=== PATIENT | female | born 1985 | race Caucasian/White ===

== ENCOUNTER 2017-01-31 10:24 | Emergency (ER) | payer BC, OTHER ==
--- NOTE | 2017-01-31 10:30 | EDM.PDOC ---
ED HPI GENERAL MEDICAL PROBLEM - General Chief Complaint: Lower Extremity Injury/Pain Stated Complaint: LEFT FOOT PAIN Time Seen by Provider: 01/31/17 10:25 - History of Present Illness INITIAL COMMENTS - FREE TEXT/NARRATIVE: HISTORY AND PHYSICAL: History of present illness: Patient 31-year-old female presents status post left foot injury that occurred yesterday when she was tripped by her dog injuring her left foot in the fall she denies other trauma or concern Review of systems: As per history of present illness and below otherwise all systems reviewed and negative. Past medical history: As per history of present illness and as reviewed below otherwise noncontributory. Surgical history: As per history of present illness and as reviewed below otherwise noncontributory. Social history: No reported history of drug or alcohol abuse. Family history: As per history of present illness and as reviewed below otherwise noncontributory. Physical exam: HEENT: Atraumatic, normocephalic, pupils reactive, negative for conjunctival pallor or scleral icterus, mucous membranes moist, throat clear, neck supple, nontender, trachea midline. Lungs: Clear to auscultation, breath sounds equal bilaterally, chest nontender. Heart: S1S2, regular, negative for clicks, rubs, or JVD. Abdomen: Soft, nondistended, nontender. Negative for masses or hepatosplenomegaly. Negative for costovertebral tenderness. Pelvis: Stable nontender. Genitourinary: Deferred. Rectal: Deferred. Extremities: Patient is a tenderness to palpation of the left forefoot and has had tenderness and ecchymosis noted to be dorsal aspect of the first digit of the left foot Neuro: Awake, alert, oriented. Cranial nerves II through XII unremarkable. Cerebellum unremarkable. Motor and sensory unremarkable throughout. Exam nonfocal. Diagnostics: X-ray left foot Therapeutics: To be determined Impression: #1 acute left foot injury Definitive disposition and diagnosis as appropriate pending reevaluation and review of above. - Related Data Allergies Allergy/AdvReac Type Severity Reaction Status Date / Time No Known Allergies Allergy Verified 01/31/17 10:28 Home Meds: Home Meds . [No Known Home Meds] 05/25/16 [History] Past Medical History - Past Health History Medical/Surgical History: Denies Medical/Surgical History HEENT History: Reports: None Genitourinary History: Reports: None Endocrine/Metabolic History: Reports: Obesity/BMI 30+ - Infectious Disease History Infectious Disease History: Reports: Chicken Pox Other Infectious Disease History: childhood - Past Surgical History HEENT Surgical History: Reports: Oral Surgery Female Surgical History: Reports: Tubal Ligation Social & Family History - Family History Family Medical History: Noncontributory Cardiac: Reports: [place] Neurological: Reports: CVA Endocrine/Metabolic: Reports: Diabetes, Type I Oncologic: Reports: Breast - Tobacco Use Smoking Status *Q: Current Every Day Smoker Years of Tobacco use: 15 Packs/Tins Daily: 0.5 - Caffeine Use Caffeine Use: Reports: Coffee - Recreational Drug Use Recreational Drug Use: No Drug Use in Last 12 Months: No Review of Systems - Review of Systems Review Of Systems: ROS reveals no pertinent complaints other than HPI. Trauma Exam - Physical Exam Exam: See Below (see dictation) Course - Vital Signs Last Recorded V/S: Last Vital Signs Temp 36.3 C 01/31/17 10:28 Pulse 93 01/31/17 10:28 Resp 18 01/31/17 10:28 BP 135/75 01/31/17 10:28 Pulse Ox 99 01/31/17 10:28 - Orders/Labs/Meds Orders: Active Orders 24 hr Category Date Time Status Foot Comp Min 3V Lt [CR] Stat Exams 01/31/17 10:29 Taken Departure - Departure Time of Disposition: 11:15 Disposition: Home, Self-Care 01 Condition: good Clinical Impression: Foot injury - Discharge Information Forms: ED Department Discharge Additional Instructions: The following information is given to patients seen in the emergency department who are being discharged to home. This information is to outline your options for follow-up care. We provide all patients seen in our emergency department with a follow-up referral. The need for follow-up, as well as the timing and circumstances, are variable depending upon the specifics of your emergency department visit. If you don't have a primary care physician on staff, we will provide you with a referral. We always advise you to contact your personal physician following an emergency department visit to inform them of the circumstance of the visit and for follow-up with them and/or the need for any referrals to a consulting specialist. The emergency department will also refer you to a specialist when appropriate. This referral assures that you have the opportunity for followup care with a specialist. All of these measure are taken in an effort to provide you with optimal care, which includes your followup. Under all circumstances we always encourage you to contact your private physician who remains a resource for coordinating your care. When calling for followup care, please make the office aware that this follow-up is from your recent emergency room visit. If for any reason you are refused follow-up, please contact the [facility] emergency department at and asked to speak to the emergency department charge nurse. Chad wrap crutches as directed follow up primary medical doctor one to 2 days Motrin/Tylenol as directed return as needed as discussed - My Orders Last 24 Hours: My Active Orders 01/31/17 10:29 Foot Comp Min 3V Lt [CR] Stat - Assessment/Plan Last 24 Hours: My Active Orders 01/31/17 10:29 Foot Comp Min 3V Lt [CR] Stat
[2017-01-31 11:28] VITALS: BP 121/70
--- NOTE | 2017-02-01 14:00 | CR ---
EXAM DATE: 01/31/17 PATIENT'S AGE: 31 Patient: LULU SINGLETON Facility: [place], [place] Site Site : [id number] Study: XRay Extremity Left FOOT [id number]/29/2017 10:45:12 AM Ordering Physician: ILSA AUGUSTINE MD. Final Report: HISTORY: Pain after injury. Findings: Three views of the left foot are provided. There is a 2 part appearance to the lateral or fibular sesamoid at the base of the distal 1st metatarsal. This can represent normal variation. If there is point tenderness in this region this could represent an acute type or stress type fracture. There also could be sesamoiditis within a bipartite sesamoid causing pain in this region. Otherwise there is no evidence for fracture, dislocation or arthritic change elsewhere. Dictated by Kiko Davis MD @ Jan 31 2017 10:54AM (Electronic Signature) Report Signed by Proxy. RAH
== END 2017-01-31 11:27 | disposition home or self-care (01) ==
LOC: MW.ED 10:24
DX: S99.922A Unspecified injury of left foot, initial encounter (principal); F17.210 Nicotine dependence, cigarettes, uncomplicated; E66.9 Obesity, unspecified; Z68.33 Body mass index [BMI] 33.0-33.9, adult; Z98.51 Tubal ligation status; Z98.890 Other specified postprocedural states; W01.0XXA Fall on same level from slipping, tripping and stumbling without subsequent striking against object, initial encounter
CPT/HCPCS: 73630-26-LT; 73630-LT; 99282; 99283

== ENCOUNTER 2019-08-17 18:38 | Emergency (ER) | payer OTHER ==
--- NOTE | 2019-08-17 19:02 | EDM.PDOC ---
ED HPI GENERAL MEDICAL PROBLEM - General Chief Complaint: Head Injury Stated Complaint: HEAD INJURY Time Seen by Provider: 08/17/19 18:44 Source of Information: Reports: Patient History Limitations: Reports: No Limitations - History of Present Illness INITIAL COMMENTS - FREE TEXT/NARRATIVE: HISTORY AND PHYSICAL: History of present illness: Patient is a 34-year-old female presents to the ED today with concern of head injury that occurred yesterday. Patient states she was standing on a deck when she slipped and hit the back of her head. Patient states she did not lose consciousness during this event. Patient states today that she has had some pain at the back of her head and neck pain. Patient states she does have a history of tubal ligation. Patient denies any vomiting or any other symptoms. Patient denies fever, chills, chest pain, shortness of breath, or cough. Denies headache, neck stiff ness, change in vision, syncope, or near syncope. Denies nausea, vomiting, abdominal pain, diarrhea, constipation, or dysuria. Has not noted any blood in urine or stool. Patient has been eating and drinking appropriately. Review of systems: As per history of present illness and below otherwise all systems reviewed and negative. Past medical history: As per history of present illness and as reviewed below otherwise noncontributory. Surgical history: As per history of present illness and as reviewed below otherwise noncontributory. Social history: See social history for further information Family history: As per history of present illness and as reviewed below otherwise noncontributory. Physical exam: General: Patient is alert, oriented, and in no acute distress. Patient sitting comfortably on exam table. HEENT: Atraumatic, normocephalic, pupils equal and reactive bilaterally, negative for conjunctival pallor or scleral icterus, mucous membranes moist, TMs normal bilaterally, throat clear, neck supple, nontender, trachea midline. No drooling or trismus noted. No meningeal signs. No hot potato voice noted. Lungs: Clear to auscultation, breath sounds equal bilaterally, chest nontender. Heart: S1S2, regular rate and rhythm without overt murmur Abdomen: Soft, nondistended, nontender. Negative for masses or hepatosplenomegaly. Negative for costovertebral tenderness. Pelvis: Stable nontender. Genitourinary: Deferred. Rectal: Deferred. Skin: Intact, warm, dry. No lesions or rashes noted. Extremities: Atraumatic, negative for cords or calf pain. Neurovascular unremarkable. Neuro: Awake, alert, oriented. Cranial nerves II through XII unremarkable. Cerebellum unremarkable. Motor and sensory unremarkable throughout. Exam nonfocal. Notes: Discussed the importance for follow-up with a primary care provider. Voices understanding and is agreeable to plan of care. Denies any further questions or concerns at this time. Diagnostics: Head CT, Cervical spine Ct Therapeutics: None Prescription: None Impression: Head injury Neck pain Plan: 1. Rest, ice, elevate the affected area. You can apply ice and or heat 15 minutes on, 15 minutes off. 2. Tylenol and/or Ibuprofen as directed for pain management or discomfort. 3. Follow up with the primary care provider as discussed. Return to the ED as needed and as discussed. Definitive disposition and diagnosis as appropriate pending reevaluation and review of above. Head/Neck Pain Score (Numeric/FACES): 4 - Related Data Allergies Allergy/AdvReac Type Severity Reaction Status Date / Time No Known Allergies Allergy Verified 08/17/19 18:50 Home Meds: Home Meds . [No Known Home Meds] 05/25/16 [History] Past Medical History - Past Health History Medical/Surgical History: Denies Medical/Surgical History HEENT History: Reports: None Gastrointestinal History: Reports: None Genitourinary History: Reports: None Endocrine/Metabolic History: Reports: Obesity/BMI 30+ - Infectious Disease History Infectious Disease History: Reports: Chicken Pox Other Infectious Disease History: childhood - Past Surgical History Head Surgeries/Procedures: Reports: None HEENT Surgical History: Reports: Oral Surgery GI Surgical History: Reports: Cholecystectomy Female Surgical History: Reports: Tubal Ligation Social & Family History - Family History Family Medical History: Noncontributory Cardiac: Reports: [place] Neurological: Reports: CVA Endocrine/Metabolic: Reports: Diabetes, Type I Oncologic: Reports: Breast - Caffeine Use Caffeine Use: Reports: Coffee ED ROS GENERAL - Review of Systems Review Of Systems: Comprehensive ROS is negative, except as noted in HPI. ED EXAM, HEAD INJURY - Physical Exam Exam: See Below (see dictation) Course - Vital Signs Last Recorded V/S: Last Vital Signs Temp 96.4 F 08/17/19 18:47 Pulse 66 08/17/19 20:03 Resp 16 08/17/19 20:03 BP 116/75 08/17/19 20:03 Pulse Ox 98 08/17/19 20:03 Departure - Departure Time of Disposition: 20:09 Disposition: Home, Self-Care 01 Clinical Impression: Neck pain Head injury Qualifiers: Encounter type: initial encounter Qualified Code(s): S09.90XA - Unspecified injury of head, initial encounter - Discharge Information Referrals: Trena Abdi [Primary Care Provider] - Forms: ED Department Discharge Additional Instructions: The following information is given to patients seen in the emergency department who are being discharged to home. This information is to outline your options for follow-up care. We provide all patients seen in our emergency department with a follow-up referral. The need for follow-up, as well as the timing and circumstances, are variable depending upon the specifics of your emergency department visit. If you don't have a primary care physician on staff, we will provide you with a referral. We always advise you to contact your personal physician following an emergency department visit to inform them of the circumstance of the visit and for follow-up with them and/or the need for any referrals to a consulting specialist. The emergency department will also refer you to a specialist when appropriate. This referral assures that you have the opportunity for follow-up care with a specialist. All of these measure are taken in an effort to provide you with optimal care, which includes your follow-up. Under all circumstances we always encourage you to contact your private physician who remains a resource for coordinating your care. When calling for follow-up care, please make the office aware that this follow-up is from your recent emergency room visit. If for any reason you are refused follow-up, please contact the [facility] Emergency Department at and asked to speak to the emergency department charge nurse. [facility] [address] [place] [id number] [facility] [address] [place] [id number] 1. Rest, ice, elevate the affected area. You can apply ice and or heat 15 minutes on, 15 minutes off. 2. Tylenol and/or Ibuprofen as directed for pain management or discomfort. 3. Follow up with the primary care provider as discussed. Return to the ED as needed and as discussed. Sepsis Event Note - Evaluation Sepsis Screening Result: No Definite Risk - Focused Exam Vital Signs: Vital Signs Temp Pulse Resp BP Pulse Ox 08/17/19 20:03 66 16 116/75 98 08/17/19 18:47 96.4 F 77 16 149/91 H 98 Date Exam was Performed: 08/17/19 Time Exam was Performed: 20:09
--- NOTE | 2019-08-17 20:00 | CT ---
INDICATION: Pain following fall 1 day prior TECHNIQUE: CT head without contrast. COMPARISON: None FINDINGS: CSF spaces: Within normal limits for age. Brain parenchyma: The gómez-white differentiation is normal. No sign of mass, hemorrhage, or midline shift. Skull base and calvarium: The visualized paranasal sinuses and mastoid air cells demonstrate no acute or significant findings. The visualized orbits are grossly unremarkable. No skull fractures. IMPRESSION: Unremarkable noncontrast head CT. Dictated by Clyde Simon MD @ 08/17/2019 7:58:07 PM Please note that all CT scans at this facility use dose modulation, iterative reconstruction, and/or weight-based dosing when appropriate to reduce radiation dose to as low as reasonably achievable. Dictated by: Clyde Simon MD @ 08/17/2019 19:58:18 (Electronically Signed)
[2019-08-17 20:04] VITALS: BP 116/75; PULSE 66
--- NOTE | 2019-08-17 20:07 | CT ---
INDICATION: Pain following fall TECHNIQUE: CT cervical spine without contrast. COMPARISON: None FINDINGS: Vertebral alignment: Alignment is normal. Vertebrae: There are no fractures or suspicious bony lesions. Discs and facet joints: Disc spaces and facets are within normal limits. Extraspinal findings: Prevertebral soft tissues, visualized airway, and visualized lungs are unremarkable. IMPRESSION: Unremarkable cervical spine CT. Dictated by Clyde Simon MD @ 08/17/2019 8:05:43 PM Please note that all CT scans at this facility use dose modulation, iterative reconstruction, and/or weight-based dosing when appropriate to reduce radiation dose to as low as reasonably achievable. Dictated by: Clyde Simon MD @ 08/17/2019 20:05:57 (Electronically Signed)
== END 2019-08-17 20:59 | disposition home or self-care (01) ==
LOC: MW.ED 18:38
DX: S09.90XA Unspecified injury of head, initial encounter (principal); M54.2 Cervicalgia; E66.9 Obesity, unspecified; Z68.31 Body mass index [BMI] 31.0-31.9, adult; W01.10XA Fall on same level from slipping, tripping and stumbling with subsequent striking against unspecified object, initial encounter
CPT/HCPCS: 70450; 70450-26; 72125; 72125-26; 99283-25

== ENCOUNTER 2020-04-10 22:22 | Emergency (ER) | payer OTHER ==
--- NOTE | 2020-04-10 23:19 | EDM.PDOC ---
ED HPI GENERAL MEDICAL PROBLEM - General Chief Complaint: Abdominal Pain Stated Complaint: RIGHT SIDE PAIN Time Seen by Provider: 04/10/20 23:15 Source of Information: Reports: Patient History Limitations: Reports: No Limitations - History of Present Illness INITIAL COMMENTS - FREE TEXT/NARRATIVE: 34F presents for RLQ abdominal pain x4 days. Notes h/o abdominoplasty a couple of months ago in [facility]. Hasn't noted fever, redness, swelling, discharge, N/V. Does note constipation. Feels "tight" and worse with movement. Right Lower Abdomen Pain Score (Numeric/FACES): 6 - Related Data Allergies Allergy/AdvReac Type Severity Reaction Status Date / Time No Known Allergies Allergy Verified 04/10/20 23:01 Home Meds: Home Meds Amoxicillin/Clavulanate K [Augmentin 875-125 MG] 1 tab PO BID 10 Days #20 tablet 04/11/20 [Rx] Past Medical History - Past Health History Medical/Surgical History: Denies Medical/Surgical History HEENT History: Reports: None Gastrointestinal History: Reports: None Genitourinary History: Reports: None Psychiatric History: Reports: None Endocrine/Metabolic History: Reports: Obesity/BMI 30+ - Infectious Disease History Infectious Disease History: Reports: Chicken Pox Other Infectious Disease History: childhood - Past Surgical History Head Surgeries/Procedures: Reports: None HEENT Surgical History: Reports: Oral Surgery GI Surgical History: Reports: Cholecystectomy Female Surgical History: Reports: Tubal Ligation Dermatological Surgical History: Reports: Plastic Surgical Reconstruction/Repair Social & Family History - Family History Family Medical History: Noncontributory Cardiac: Reports: ND Neurological: Reports: CVA Endocrine/Metabolic: Reports: Diabetes, Type I Oncologic: Reports: Breast - Tobacco Use Smoking Status *Q: Current Some Day Smoker Years of Tobacco use: 17 Packs/Tins Daily: 0.4 - Caffeine Use Caffeine Use: Reports: Coffee - Recreational Drug Use Recreational Drug Use: No ED ROS GENERAL - Review of Systems Review Of Systems: Comprehensive ROS is negative, except as noted in HPI. ED EXAM, GI/ABD - Physical Exam Exam: See Below Exam Limited By: No Limitations General Appearance: Alert, WD/WN, No Apparent Distress Head: Atraumatic Respiratory/Chest: No Respiratory Distress, Lungs Clear, Normal Breath Sounds, No Accessory Muscle Use Cardiovascular: Normal Peripheral Pulses, Regular Rate, Rhythm, No Edema, Tachycardia GI/Abdominal Exam: Soft, Non-Tender, Other (well appearing transverse abdominal surgical incision site without erythema; mild TTP of RLQ without guarding or ebound) Extremities: Normal Inspection Neurological: Alert Psychiatric: Normal Affect, Normal Mood Skin Exam: Warm, Dry Course - Vital Signs Last Recorded V/S: Last Vital Signs Temp 97.3 F 04/10/20 22:57 Pulse 92 04/11/20 02:10 Resp 16 04/11/20 02:10 BP 128/81 04/11/20 02:10 Pulse Ox 98 04/11/20 02:10 - Orders/Labs/Meds Labs: Laboratory Tests 04/10/20 04/10/20 04/10/20 Range/Units 23:10 23:10 23:35 WBC 16.85 H (4.0-11.0) K/uL RBC 4.66 (4.30-5.90) M/uL Hgb 10.0 L (12.0-16.0) g/dL Hct 32.8 L (36.0-46.0) % MCV 70.4 L (80.0-98.0) fL MCH 21.5 L (27.0-32.0) pg MCHC 30.5 L (31.0-37.0) g/dL RDW Std Deviation 51.8 (28.0-62.0) fl RDW Coeff of Lucio 20 H (11.0-15.0) % Plt Count 454 H (150-400) K/uL MPV 9.50 (7.40-12.00) fL Neut % (Auto) 65.3 (48.0-80.0) % Lymph % (Auto) 24.6 (16.0-40.0) % Graham % (Auto) 8.8 (0.0-15.0) % Eos % (Auto) 0.9 (0.0-7.0) % Baso % (Auto) 0.4 (0.0-1.5) % Neut # (Auto) 11.0 H (1.4-5.7) K/uL Lymph # (Auto) 4.2 H (0.6-2.4) K/uL Graham # (Auto) 1.5 H (0.0-0.8) K/uL Eos # (Auto) 0.2 (0.0-0.7) K/uL Baso # (Auto) 0.1 (0.0-0.1) K/uL Nucleated RBC % 0.0 /100WBC Nucleated RBCs # 0 K/uL Sodium (136-145) mmol/L Potassium (3.5-5.1) mmol/L Chloride (98-107) mmol/L Carbon Dioxide (21.0-32.0) mmol/L BUN (7.0-18.0) mg/dL Creatinine (0.6-1.0) mg/dL Est Cr Clr Drug Dosing mL/min Estimated GFR (MDRD) ml/min Glucose (74-106) mg/dL Calcium (8.5-10.1) mg/dL Total Bilirubin (0.2-1.0) mg/dL AST (15-37) IU/L ALT (14-63) IU/L Alkaline Phosphatase (46-116) U/L Total Protein (6.4-8.2) g/dL Albumin (3.4-5.0) g/dL Globulin (2.6-4.0) g/dL Albumin/Globulin Ratio (0.9-1.6) Lipase (73-393) U/L Urine Color YELLOW Urine Appearance CLEAR Urine pH 5.5 (5.0-8.0) Ur Specific [place] >= 1.030 (1.001-1.035) Urine Protein NEGATIVE (NEGATIVE) mg/dL Urine Glucose (UA) NEGATIVE (NEGATIVE) mg/dL Urine Ketones NEGATIVE (NEGATIVE) mg/dL Urine Occult Blood NEGATIVE (NEGATIVE) Urine Nitrite NEGATIVE (NEGATIVE) Urine Bilirubin NEGATIVE (NEGATIVE) Urine Urobilinogen 0.2 (<2.0) EU/dL Ur Leukocyte Esterase NEGATIVE (NEGATIVE) Urine HCG, Qual NEGATIVE (NEGATIVE) 04/10/20 Range/Units 23:35 WBC (4.0-11.0) K/uL RBC (4.30-5.90) M/uL Hgb (12.0-16.0) g/dL Hct (36.0-46.0) % MCV (80.0-98.0) fL MCH (27.0-32.0) pg MCHC (31.0-37.0) g/dL RDW Std Deviation (28.0-62.0) fl RDW Coeff of Lucio (11.0-15.0) % Plt Count (150-400) K/uL MPV (7.40-12.00) fL Neut % (Auto) (48.0-80.0) % Lymph % (Auto) (16.0-40.0) % Graham % (Auto) (0.0-15.0) % Eos % (Auto) (0.0-7.0) % Baso % (Auto) (0.0-1.5) % Neut # (Auto) (1.4-5.7) K/uL Lymph # (Auto) (0.6-2.4) K/uL Graham # (Auto) (0.0-0.8) K/uL Eos # (Auto) (0.0-0.7) K/uL Baso # (Auto) (0.0-0.1) K/uL Nucleated RBC % /100WBC Nucleated RBCs # K/uL Sodium 138 (136-145) mmol/L Potassium 3.7 (3.5-5.1) mmol/L Chloride 101 (98-107) mmol/L Carbon Dioxide 25.2 (21.0-32.0) mmol/L BUN 5 L (7.0-18.0) mg/dL Creatinine 0.7 (0.6-1.0) mg/dL Est Cr Clr Drug Dosing 103.82 mL/min Estimated GFR (MDRD) > 60.0 ml/min Glucose 94 (74-106) mg/dL Calcium 8.0 L (8.5-10.1) mg/dL Total Bilirubin 0.2 (0.2-1.0) mg/dL AST 12 L (15-37) IU/L ALT 16 (14-63) IU/L Alkaline Phosphatase 60 (46-116) U/L Total Protein 7.6 (6.4-8.2) g/dL Albumin 3.3 L (3.4-5.0) g/dL Globulin 4.3 H (2.6-4.0) g/dL Albumin/Globulin Ratio 0.8 L (0.9-1.6) Lipase 58 L (73-393) U/L Urine Color Urine Appearance Urine pH (5.0-8.0) Ur Specific [place] (1.001-1.035) Urine Protein (NEGATIVE) mg/dL Urine Glucose (UA) (NEGATIVE) mg/dL Urine Ketones (NEGATIVE) mg/dL Urine Occult Blood (NEGATIVE) Urine Nitrite (NEGATIVE) Urine Bilirubin (NEGATIVE) Urine Urobilinogen (<2.0) EU/dL Ur Leukocyte Esterase (NEGATIVE) Urine HCG, Qual (NEGATIVE) Meds: Medications Discontinued Medications Generic Name Dose Route Start Last Admin Trade Name Freq PRN Reason Stop Dose Admin Iopamidol 100 ml 04/11/20 00:54 04/11/20 00:55 Isovue-370 (76%) IVPUSH 04/11/20 00:55 100 ml ONETIME STA Administration Ketorolac Tromethamine 15 mg 04/10/20 23:21 04/10/20 23:27 Toradol IVPUSH 04/10/20 23:22 15 mg ONETIME ONE Administration - Re-Assessments/Exams Free Text/Narrative Re-Assessment/Exam: 04/10/20 23:36 Will get basic labs and CT to r/o intraabdominal pathology in setting of recent surgical procedure although low suspicion serious intraabdominal pathology Free Text/Narrative Re-Assessment/Exam: 04/11/20 02:[address] Cook who recommends antibiotics and will f/u with patient on Tuesday. Strict return precautions discussed with patient for signs of worsening infection. She is very reasonable and demonstrates good health literacy and will come back to ED for fever, inability to tolerate PO, or worsening pain. She will f/u with [facility] on Tuesday. Departure - Departure Time of Disposition: 01:50 Disposition: Home, Self-Care 01 Condition: Good Clinical Impression: Hematoma - Discharge Information *PRESCRIPTION DRUG MONITORING PROGRAM REVIEWED*: No *COPY OF PRESCRIPTION DRUG MONITORING REPORT IN PATIENT YESIKA: No Prescriptions: Amoxicillin/Clavulanate K [Augmentin 875-125 MG] 1 tab PO BID 10 Days #20 tablet Instructions: Seroma Referrals: Tom Reyes MD [Primary Care Provider] - Dr Nisreen [Other] Forms: ED Department Discharge Additional Instructions: The following information is given to patients seen in the emergency department who are being discharged to home. This information is to outline your options for follow-up care. We provide all patients seen in our emergency department with a follow-up referral. The need for follow-up, as well as the timing and circumstances, are variable depending upon the specifics of your emergency department visit. If you don't have a primary care physician on staff, we will provide you with a referral. We always advise you to contact your personal physician following an emergency department visit to inform them of the circumstance of the visit and for follow-up with them and/or the need for any referrals to a consulting specialist. The emergency department will also refer you to a specialist when appropriate. This referral assures that you have the opportunity for follow-up care with a specialist. All of these measure are taken in an effort to provide you with optimal care, which includes your follow-up. Under all circumstances we always encourage you to contact your private physician who remains a resource for coordinating your care. When calling for follow-up care, please make the office aware that this follow-up is from your recent emergency room visit. If for any reason you are refused follow-up, please contact the [facility] Emergency Department at and asked to speak to the emergency department charge nurse. Medications as prescribed. Follow up with primary care provider. Sepsis Event Note (ED) - Evaluation Sepsis Screening Result: No Definite Risk - Focused Exam Vital Signs: Vital Signs Temp Pulse Resp BP Pulse Ox 04/11/20 02:10 92 16 128/81 98 04/11/20 01:19 71 16 123/82 98 04/10/20 22:57 97.3 F 114 H 18 138/87 98
[2020-04-10] MEDS ORDERED: Ketorolac 15 MG/ML SDV IVPUSH ONE (23:21)
[2020-04-11 00:08] LABS: BLOOD UREA NITROGEN,BUN 5 mg/dL (7.0-18.0); CARBON DIOXIDE,CO2 25.2 mmol/L (21.0-32.0); CHLORIDE,CL 101 mmol/L (98-107); GLUCOSE RANDOM 94 mg/dL (74-106); LIPASE 58 U/L (73-393); POTASSIUM,K 3.7 mmol/L (3.5-5.1); SODIUM,NA 138 mmol/L (136-145)
[2020-04-11] MEDS ORDERED: Iopamidol 755 Mg/ML 100 ML Bottle IVPUSH STA (00:54)
--- NOTE | 2020-04-11 01:20 | CT ---
INDICATION: Recent abdominoplasty, right lower quadrant pain TECHNIQUE: CT Abdomen and pelvis with i.v. contrast. Coronal and sagittal reformats were obtained. CONTRAST: 100 mL Isovue 370 COMPARISON: 05/14/2012 FINDINGS: Lower chest: Unremarkable. Liver: Unremarkable. Spleen: Unremarkable. Pancreas: Unremarkable. Gallbladder: Previous cholecystectomy noted without significant intra- or extrahepatic biliary ductal dilatation seen. Kidney: Unremarkable. No kidney or ureteral stones or obstruction seen. Adrenal: Unremarkable. Bowel: Unremarkable. The appendix is normal in appearance and size. Vascular: Unremarkable. Lymph: Unremarkable. Peritoneum: Unremarkable. No pneumoperitoneum is seen. No significant ascites is noted. Pelvis: A punctate focus of gas is present within the bladder, most likely due to recent bladder instrumentation. Soft tissue: There is a well-circumscribed fluid collection with enhancing margins seen in the anterior midline abdominal wall in the epigastrium measuring 5.1 x 2.1 cm. There is a 2nd ill-defined fluid collection with severe surrounding infiltration of the subcutaneous fat along the midline abdomen inferior to the umbilicus. Bone: Unremarkable for age. IMPRESSION: 1. There is a well-circumscribed fluid collection with enhancing margins seen in the anterior midline abdominal wall in the epigastrium measuring 5.1 x 2.1 cm. There is a 2nd ill-defined fluid collection with severe surrounding infiltration of the subcutaneous fat along the midline abdomen inferior to the umbilicus. Is most likely due to postoperative hematomas but clinical correlation and aspiration may be helpful to exclude the possibility superimposed infection or abscess. Dictated by Jose Pérez MD @ 04/11/2020 1:18:53 AM Please note that all CT scans at this facility use dose modulation, iterative reconstruction, and/or weight-based dosing when appropriate to reduce radiation dose to as low as reasonably achievable. Dictated by: Jose Pérez MD @ 04/11/2020 01:19:13 (Electronically Signed)
[2020-04-11 02:15] VITALS: BP 128/81; PULSE 92
== END 2020-04-11 02:10 | disposition home or self-care (01) ==
LOC: MW.ED 22:22
DX: L76.32 Postprocedural hematoma of skin and subcutaneous tissue following other procedure (principal); E66.9 Obesity, unspecified; Z68.33 Body mass index [BMI] 33.0-33.9, adult; F17.210 Nicotine dependence, cigarettes, uncomplicated
CPT/HCPCS: 36415; 74177; 80053; 81003; 81025; 83690; 85025; 96374; 99284; J1885; Q9967; 99283

== ENCOUNTER 2020-11-07 09:07 | Day surgery (SDC) | payer OTHER ==
[2020-11-07] MEDS ORDERED: Morphine 4 MG/ML Syringe IVPUSH ONE (09:12)
[2020-11-07] MEDS ORDERED: Sodium Chloride 0.9% 2.5 ML Syringe FLUSH PRN (09:12)
[2020-11-07] MEDS ORDERED: Ondansetron 4 MG/2 ML SDV IVPUSH ONE (09:12)
[2020-11-07] MEDS ORDERED: Sodium Chloride 0.9% 10 ML Syringe FLUSH PRN (09:12)
[2020-11-07] MEDS ORDERED: Lactated Ringers 1,000 ML IV ONE (09:12)
--- NOTE | 2020-11-07 09:14 | EDM.PDOC ---
ED HPI GENERAL MEDICAL PROBLEM - General Chief Complaint: Abdominal Pain Stated Complaint: referred Time Seen by Provider: 11/07/20 09:12 Source of Information: Reports: Patient History Limitations: Reports: No Limitations - History of Present Illness INITIAL COMMENTS - FREE TEXT/NARRATIVE: 35-year-old female with history of cholecystectomy, BTL, tummy tuck in 01/2020 presents with abdominal pain. Abdominal pain is localized to the epigastric/periumbilical region, has been progressively worsening over the past 2 weeks, intermittent, currently rated 4/10 lying down, worse with sitting up, moving, sneezing. She denies fever, chills, nausea, vomiting, sore throat, runny nose, cough, Diarrhea, chest pain. Last BM yesterday. She was referred here from [facility] after Dr. Abarca spoke with Dr. Jeff Simon. ROS: A 10-point review of systems, other than pertinent positives and negatives as stated per HPI, is otherwise negative Past medical history: No additional pertinent history Past Surgical history: No additional pertinent history Social history: No additional pertinent history Family history: No additional pertinent history PHYSICAL EXAM General: AOx4, GCS = 15, mild distress HEENT: dry mucous membrane Neck: supple, no meningismus, no Kernig or Brudzinski Cardiac: S1S2 tachycardia Respiratory: CTAB, no crackles or rales, no wheezing Abdomen: Soft, epigastric ttp, no rebound or guarding, nondistended, no pulsatile mass. Back: nontender Musculoskeletal: NVI distally, no deformity Neuro: No focal deficits, CN 2 - 12 WNL. abdomen Pain Score (Numeric/FACES): 8 - Related Data Allergies Allergy/AdvReac Type Severity Reaction Status Date / Time No Known Allergies Allergy Verified 11/07/20 09:36 Home Meds: Home Meds . [No Known Home Meds] 11/07/20 [History] Past Medical History - Past Health History Medical/Surgical History: Denies Medical/Surgical History HEENT History: Reports: None Gastrointestinal History: Reports: None Genitourinary History: Reports: None Psychiatric History: Reports: None Endocrine/Metabolic History: Reports: Obesity/BMI 30+ - Infectious Disease History Infectious Disease History: Reports: Chicken Pox Other Infectious Disease History: childhood - Past Surgical History Head Surgeries/Procedures: Reports: None HEENT Surgical History: Reports: Oral Surgery GI Surgical History: Reports: Cholecystectomy Female Surgical History: Reports: Tubal Ligation Dermatological Surgical History: Reports: Plastic Surgical Reconstruction/Repair Social & Family History - Family History Family Medical History: No Pertinent Family History Cardiac: Reports: MT Neurological: Reports: CVA Endocrine/Metabolic: Reports: Diabetes, Type I Oncologic: Reports: Breast - Caffeine Use Caffeine Use: Reports: Coffee ED ROS GENERAL - Review of Systems Review Of Systems: See Below (see dictation) ED EXAM, GI/ABD - Physical Exam Exam: See Below (see dictation) Course - Vital Signs Last Recorded V/S: Last Vital Signs Temp 97.2 F 11/07/20 09:10 Pulse 101 H 11/07/20 14:00 Resp 17 11/07/20 14:00 BP 136/80 11/07/20 14:00 Pulse Ox 98 11/07/20 14:00 - Orders/Labs/Meds Orders: Active Orders 24 hr Category Date Time Status Patient Status [ADT] Routine ADT 11/07/20 14:47 Ordered CULTURE BLOOD [BC] Stat Lab 11/07/20 09:20 Received CULTURE BLOOD [BC] Stat Lab 11/07/20 12:41 Received VANCOMYCIN TROUGH [CHEM] Stat Lab 11/08/20 12:00 Ordered Sodium Chloride 0.9% [Saline Flush] Med 11/07/20 09:12 Active 10 ml FLUSH ASDIRECTED PRN Sodium Chloride 0.9% [Saline Flush] Med 11/07/20 09:12 Active 2.5 ml FLUSH ASDIRECTED PRN VANCOmycin 1.5 GM/300 ML 1.5 gm Med 11/07/20 12:45 Active Premix Bag 1 bag IV Q8H Blood Culture x2 Reflex Set [OM.PC] Stat Oth 11/07/20 12:27 Ordered Saline Lock Insert [OM.PC] Stat Oth 11/07/20 09:12 Ordered Medication Orders Vancomycin HCl 1.5 gm/ Premix 300 mls @ 200 mls/hr IV Q8H [facility] Last Admin: 11/07/20 14:00 Dose: 200 mls/hr Documented by: CALEB Sodium Chloride (Saline Flush) 10 ml FLUSH ASDIRECTED PRN PRN Reason: Keep Vein Open Last Admin: 11/07/20 09:37 Dose: 10 ml Documented by: MATT Sodium Chloride (Saline Flush) 2.5 ml FLUSH ASDIRECTED PRN PRN Reason: Keep Vein Open Last Admin: 11/07/20 10:26 Dose: 2.5 ml Documented by: CALEB Labs: Laboratory Tests 11/07/20 11/07/20 11/07/20 Range/Units 09:20 09:20 09:20 WBC 11.93 H (4.0-11.0) K/uL RBC 5.34 (4.30-5.90) M/uL Hgb 13.4 (12.0-16.0) g/dL Hct 41.2 (36.0-46.0) % MCV 77.2 L (80.0-98.0) fL MCH 25.1 L (27.0-32.0) pg MCHC 32.5 (31.0-37.0) g/dL RDW Std Deviation 46.3 (28.0-62.0) fl RDW Coeff of Lucio 16 H (11.0-15.0) % Plt Count 420 H (150-400) K/uL MPV 9.70 (7.40-12.00) fL Neut % (Auto) 62.4 (48.0-80.0) % Lymph % (Auto) 27.2 (16.0-40.0) % Hunt % (Auto) 9.8 (0.0-15.0) % Eos % (Auto) 0.2 (0.0-7.0) % Baso % (Auto) 0.4 (0.0-1.5) % Neut # (Auto) 7.4 H (1.4-5.7) K/uL Lymph # (Auto) 3.3 H (0.6-2.4) K/uL Hunt # (Auto) 1.2 H (0.0-0.8) K/uL Eos # (Auto) 0.0 (0.0-0.7) K/uL Baso # (Auto) 0.1 (0.0-0.1) K/uL Nucleated RBC % 0.0 /100WBC Nucleated RBCs # 0 K/uL INR 1.03 Lactate 0.6 (0.20-2.00) mmol/L Sodium (136-145) mmol/L Potassium (3.5-5.1) mmol/L Chloride (98-107) mmol/L Carbon Dioxide (21.0-32.0) mmol/L BUN (7.0-18.0) mg/dL Creatinine (0.6-1.0) mg/dL Est Cr Clr Drug Dosing mL/min Estimated GFR (MDRD) ml/min Glucose (74-106) mg/dL Calcium (8.5-10.1) mg/dL Total Bilirubin (0.2-1.0) mg/dL AST (15-37) IU/L ALT (14-63) IU/L Alkaline Phosphatase (46-116) U/L Total Protein (6.4-8.2) g/dL Albumin (3.4-5.0) g/dL Globulin (2.6-4.0) g/dL Albumin/Globulin Ratio (0.9-1.6) Lipase (73-393) U/L Urine Color Urine Appearance Urine pH (5.0-8.0) Ur Specific [place] (1.001-1.035) Urine Protein (NEGATIVE) mg/dL Urine Glucose (UA) (NEGATIVE) mg/dL Urine Ketones (NEGATIVE) mg/dL Urine Occult Blood (NEGATIVE) Urine Nitrite (NEGATIVE) Urine Bilirubin (NEGATIVE) Urine Urobilinogen (<2.0) EU/dL Ur Leukocyte Esterase (NEGATIVE) Urine HCG, Qual (NEGATIVE) SARS-CoV-2 RNA (DARLEEN) (NEGATIVE) 11/07/20 11/07/20 11/07/20 Range/Units 09:20 09:53 09:53 WBC (4.0-11.0) K/uL RBC (4.30-5.90) M/uL Hgb (12.0-16.0) g/dL Hct (36.0-46.0) % MCV (80.0-98.0) fL MCH (27.0-32.0) pg MCHC (31.0-37.0) g/dL RDW Std Deviation (28.0-62.0) fl RDW Coeff of Lucio (11.0-15.0) % Plt Count (150-400) K/uL MPV (7.40-12.00) fL Neut % (Auto) (48.0-80.0) % Lymph % (Auto) (16.0-40.0) % Hunt % (Auto) (0.0-15.0) % Eos % (Auto) (0.0-7.0) % Baso % (Auto) (0.0-1.5) % Neut # (Auto) (1.4-5.7) K/uL Lymph # (Auto) (0.6-2.4) K/uL Hunt # (Auto) (0.0-0.8) K/uL Eos # (Auto) (0.0-0.7) K/uL Baso # (Auto) (0.0-0.1) K/uL Nucleated RBC % /100WBC Nucleated RBCs # K/uL INR Lactate (0.20-2.00) mmol/L Sodium 139 (136-145) mmol/L Potassium 3.4 L (3.5-5.1) mmol/L Chloride 102 (98-107) mmol/L Carbon Dioxide 24.7 (21.0-32.0) mmol/L BUN 6 L (7.0-18.0) mg/dL Creatinine 0.7 (0.6-1.0) mg/dL Est Cr Clr Drug Dosing 102.86 mL/min Estimated GFR (MDRD) > 60.0 ml/min Glucose 94 (74-106) mg/dL Calcium 8.3 L (8.5-10.1) mg/dL Total Bilirubin 0.2 (0.2-1.0) mg/dL AST 21 (15-37) IU/L ALT 43 (14-63) IU/L Alkaline Phosphatase 65 (46-116) U/L Total Protein 8.4 H (6.4-8.2) g/dL Albumin 3.4 (3.4-5.0) g/dL Globulin 5.0 H (2.6-4.0) g/dL Albumin/Globulin Ratio 0.7 L (0.9-1.6) Lipase 66 L (73-393) U/L Urine Color YELLOW Urine Appearance CLEAR Urine pH 6.0 (5.0-8.0) Ur Specific [place] 1.010 (1.001-1.035) Urine Protein NEGATIVE (NEGATIVE) mg/dL Urine Glucose (UA) NEGATIVE (NEGATIVE) mg/dL Urine Ketones NEGATIVE (NEGATIVE) mg/dL Urine Occult Blood NEGATIVE (NEGATIVE) Urine Nitrite NEGATIVE (NEGATIVE) Urine Bilirubin NEGATIVE (NEGATIVE) Urine Urobilinogen 0.2 (<2.0) EU/dL Ur Leukocyte Esterase NEGATIVE (NEGATIVE) Urine HCG, Qual NEGATIVE (NEGATIVE) SARS-CoV-2 RNA (DARLEEN) (NEGATIVE) 11/07/20 Range/Units 12:45 WBC (4.0-11.0) K/uL RBC (4.30-5.90) M/uL Hgb (12.0-16.0) g/dL Hct (36.0-46.0) % MCV (80.0-98.0) fL MCH (27.0-32.0) pg MCHC (31.0-37.0) g/dL RDW Std Deviation (28.0-62.0) fl RDW Coeff of Lcuio (11.0-15.0) % Plt Count (150-400) K/uL MPV (7.40-12.00) fL Neut % (Auto) (48.0-80.0) % Lymph % (Auto) (16.0-40.0) % Hunt % (Auto) (0.0-15.0) % Eos % (Auto) (0.0-7.0) % Baso % (Auto) (0.0-1.5) % Neut # (Auto) (1.4-5.7) K/uL Lymph # (Auto) (0.6-2.4) K/uL Hunt # (Auto) (0.0-0.8) K/uL Eos # (Auto) (0.0-0.7) K/uL Baso # (Auto) (0.0-0.1) K/uL Nucleated RBC % /100WBC Nucleated RBCs # K/uL INR Lactate (0.20-2.00) mmol/L Sodium (136-145) mmol/L Potassium (3.5-5.1) mmol/L Chloride (98-107) mmol/L Carbon Dioxide (21.0-32.0) mmol/L BUN (7.0-18.0) mg/dL Creatinine (0.6-1.0) mg/dL Est Cr Clr Drug Dosing mL/min Estimated GFR (MDRD) ml/min Glucose (74-106) mg/dL Calcium (8.5-10.1) mg/dL Total Bilirubin (0.2-1.0) mg/dL AST (15-37) IU/L ALT (14-63) IU/L Alkaline Phosphatase (46-116) U/L Total Protein (6.4-8.2) g/dL Albumin (3.4-5.0) g/dL Globulin (2.6-4.0) g/dL Albumin/Globulin Ratio (0.9-1.6) Lipase (73-393) U/L Urine Color Urine Appearance Urine pH (5.0-8.0) Ur Specific [place] (1.001-1.035) Urine Protein (NEGATIVE) mg/dL Urine Glucose (UA) (NEGATIVE) mg/dL Urine Ketones (NEGATIVE) mg/dL Urine Occult Blood (NEGATIVE) Urine Nitrite (NEGATIVE) Urine Bilirubin (NEGATIVE) Urine Urobilinogen (<2.0) EU/dL Ur Leukocyte Esterase (NEGATIVE) Urine HCG, Qual (NEGATIVE) SARS-CoV-2 RNA (DARLEEN) POSITIVE H (NEGATIVE) Meds: Medications Generic Name Dose Route Start Last Admin Trade Name Freq PRN Reason Stop Dose Admin Vancomycin HCl 1.5 gm/ Premix 300 mls @ 200 mls/hr 11/07/20 12:45 11/07/20 14:00 IV 200 mls/hr Q8H [facility] Administration Sodium Chloride 10 ml 11/07/20 09:12 11/07/20 09:37 Saline Flush FLUSH 10 ml ASDIRECTED PRN Administration Keep Vein Open Sodium Chloride 2.5 ml 11/07/20 09:12 11/07/20 10:26 Saline Flush FLUSH 2.5 ml ASDIRECTED PRN Administration Keep Vein Open Discontinued Medications Generic Name Dose Route Start Last Admin Trade Name Freq PRN Reason Stop Dose Admin Lactated Ringer's 1,000 mls @ 999 mls/hr 11/07/20 09:12 11/07/20 09:35 Ringers, Lactated IV 11/07/20 10:12 999 mls/hr .BOLUS ONE Administration Piperacillin Sod/Tazobactam 100 mls @ 100 mls/hr 11/07/20 12:25 11/07/20 12:57 Sod 4.5 gm/ Sodium Chloride IV 11/07/20 13:24 100 mls/hr ONETIME ONE Administration Iopamidol 100 ml 11/07/20 11:07 11/07/20 11:08 Isovue Multipack-370 (76%) IVPUSH 11/07/20 11:08 100 ml ONETIME ONE Administration Morphine Sulfate 4 mg 11/07/20 09:12 11/07/20 09:35 Morphine IVPUSH 11/07/20 09:13 4 mg ONETIME ONE Administration Ondansetron HCl 4 mg 11/07/20 09:12 11/07/20 09:35 Zofran IVPUSH 11/07/20 09:13 4 mg ONETIME ONE Administration Vancomycin HCl 1 dose 11/07/20 12:25 11/07/20 12:58 Pharmacy To Dose - Vancomycin .XX 11/07/20 12:26 Not Given ONETIME ONE - Re-Assessments/Exams Free Text/Narrative Re-Assessment/Exam: 11/07/20 14:20 Dr. Jeff Simon at bedside assessing patient. 11/07/20 14:[address] Jeff Simon, who plans to take patient to the operating room for incision and drainage. MEDICAL DECISION MAKING: I reviewed the patients past medical records, lab and radiographic findings. I discussed the case with the patient. My differential diagnosis included: Hernia, abscess, hematoma, seroma. CT demonstrated large fl uid collection in the anterior abdominal wall. Surgery was consulted and will take patient to the OR for I&D under anesthesia. Patient was given IV vancomycin and Zosyn in the ER. Patient denies fever, cough, shortness of breath despite being tested positive for Covid. She is not hypoxic, she does not require supplemental oxygen. Institutional protocols and algorithms that pertain to the evaluation of patients at risk for COVID-19 are in a state of rapid change based on information released by regulatory bodies including the CDC and federal and state organizations. These policies and algorithms were followed during the patient's care. I wore full PPE, N95, face shield, gown and gloves throughout my evaluation and care of this patient. I recommended home isolation. given home isolation instructions. Departure - Departure Time of Disposition: 14:50 Disposition: Refer to Observation Condition: Good Clinical Impression: COVID-19, Abdominal wall abscess - Discharge Information *PRESCRIPTION DRUG MONITORING PROGRAM REVIEWED*: Not Applicable *COPY OF PRESCRIPTION DRUG MONITORING REPORT IN PATIENT YESIKA: Not Applicable Referrals: Tom Reyes MD [Primary Care Provider] - Forms: ED Department Discharge Critical Care Note - Critical Care Note Total Time (mins): 40 Comments: CRITCAL CARE: The high probability of sudden, clinically significant deterioration in the patient's condition required the highest level of my preparedness to intervene urgently. The services I provided to this patient were to treat and/or prevent clinically significant deterioration. Services included the following: chart data review, reviewing nursing notes and/or old charts, documentation time, organizational effectiveness consultant collaboration regarding findings and treatment options, medication orders and management, direct patient care, vital sign assessments and ordering, interpreting and reviewing diagnostic studies/lab tests. Aggregate critical care time includes only time during which I was engaged in work directly related to the patient's care, as described above, whether at the bedside or elsewhere in the Emergency Department. It did not include time spent performing other reported procedures or the services of residents, students, nurses or physician assistants. Frequent interventions and/or frequent repeat evaluations were required as well as counseling and coordination of care regarding prognosis, treatments, and discussions with patient, staff and consultants. Critical Care (excluding other procedures): 40 minutes Sepsis Event Note (ED) - Focused Exam Vital Signs: Vital Signs Temp Pulse Resp BP Pulse Ox 11/07/20 14:00 101 H 17 136/80 98 11/07/20 12:15 99 17 142/85 H 97 11/07/20 10:27 94 17 118/78 98 11/07/20 09:10 97.2 F 115 H 17 142/92 H 99 - My Orders Last 24 Hours: My Active Orders 11/07/20 09:12 Sodium Chloride 0.9% [Saline Flush] 10 ml FLUSH ASDIRECTED PRN Sodium Chloride 0.9% [Saline Flush] 2.5 ml FLUSH ASDIRECTED PRN Saline Lock Insert [OM.PC] Stat 11/07/20 09:20 CULTURE BLOOD [BC] Stat 11/07/20 12:27 Blood Culture x2 Reflex Set [OM.PC] Stat 11/07/20 12:41 CULTURE BLOOD [BC] Stat 11/07/20 12:45 VANCOmycin 1.5 GM/300 ML 1.5 gm Premix Bag 1 bag IV Q8H 11/07/20 14:47 Patient Status [ADT] Routine 11/08/20 12:00 VANCOMYCIN TROUGH [CHEM] Stat - Assessment/Plan Last 24 Hours: My Active Orders 11/07/20 09:12 Sodium Chloride 0.9% [Saline Flush] 10 ml FLUSH ASDIRECTED PRN Sodium Chloride 0.9% [Saline Flush] 2.5 ml FLUSH ASDIRECTED PRN Saline Lock Insert [OM.PC] Stat 11/07/20 09:20 CULTURE BLOOD [BC] Stat 11/07/20 12:27 Blood Culture x2 Reflex Set [OM.PC] Stat 11/07/20 12:41 CULTURE BLOOD [BC] Stat 11/07/20 12:45 VANCOmycin 1.5 GM/300 ML 1.5 gm Premix Bag 1 bag IV Q8H 11/07/20 14:47 Patient Status [ADT] Routine 11/08/20 12:00 VANCOMYCIN TROUGH [CHEM] Stat
[2020-11-07 09:56] LABS: BLOOD UREA NITROGEN,BUN 6 mg/dL (7.0-18.0); CHLORIDE,CL 102 mmol/L (98-107); GLUCOSE RANDOM 94 mg/dL (74-106); LIPASE 66 U/L (73-393); POTASSIUM,K 3.4 mmol/L (3.5-5.1); SODIUM,NA 139 mmol/L (136-145)
[2020-11-07 10:00] LABS: CARBON DIOXIDE,CO2 24.7 mmol/L (21.0-32.0)
[2020-11-07] MEDS ORDERED: Iopamidol 755 MG/ML 500 ML Multipack Bottle IVPUSH ONE (11:07)
--- NOTE | 2020-11-07 11:57 | CT ---
INDICATION: Upper abdominal swelling. History of abdominoplasty. TECHNIQUE: CT of the abdomen and pelvis with 100 cc Isovue 370 IV contrast. Coronal and sagittal reconstructions. COMPARISON: CT abdomen and pelvis 04/11/2020. FINDINGS: Stable hepatomegaly, with the liver measuring 23.2 cm in length. Hepatic and portal veins are patent. Cholecystectomy. No biliary dilation. Normal spleen size. The pancreas and adrenal glands are negative. Symmetric enhancement of the kidneys. Small left renal cyst. No hydronephrosis. No obstructing urinary calculi. The bladder and uterus are normal in appearance. Small follicles in both ovaries. No bowel dilation. Negative appendix. No intraperitoneal free air or fluid. Prior postoperative changes of the anterior abdominal wall. Near complete resolution of the previously seen subcutaneous fluid collection in the anterior pelvis, with a tiny residual collection measuring 1.0 x 2.7 cm (series 201 image 154). Increased size and wall thickness of a peripherally enhancing subcutaneous fluid collection in the upper anterior abdominal wall measuring 4.7 x 10.3 x 9.4 cm today compared to 2.2 x 5.3 x 5.8 cm previously (series 201 image 77 and series 204, image 90). There is surrounding inflammatory fat stranding suggesting inflammation. No internal gas locules. This is suspicious for an abscess. No lymphadenopathy. The bones are unremarkable. Scattered ground-glass opacities in both lung bases are likely infectious or inflammatory. IMPRESSION: 1. Increased size of a subcutaneous fluid collection in the upper anterior abdominal wall now measuring 4.7 x 10.3 x 9.4 cm. There is a thick peripherally enhancing rim and surrounding inflammatory fat stranding. Findings are suspicious for an abscess. 2. Near complete resolution of the previously seen subcutaneous fluid collection in the anterior pelvis. 3. Stable hepatomegaly. 4. Scattered ground-glass opacities in both lung bases are likely infectious or inflammatory. Please note that all CT scans at this facility use dose modulation, iterative reconstruction, and/or weight-based dosing when appropriate to reduce radiation dose to as low as reasonably achievable. Dictated by Yvonne Curry MD @ Nov 07 2020 11:39AM Signed by Dr. Yvonne Curry @ Nov 07 2020 11:54AM
[2020-11-07] MEDS ORDERED: Piperacillin/Tazobactam 4.5 GM in Sodium Chloride 0.9% 100 ML IV ONE (12:25)
[2020-11-07] MEDS ORDERED: VANCOmycin 1.5 GM/300 ML 1.5 GM in Premix Bag 1 BAG IV SCH (12:45)
--- NOTE | 2020-11-07 12:47 | CR ---
INDICATION: Chest pain TECHNIQUE: Single view chest. FINDINGS: The lungs are clear. The heart, mediastinum and pulmonary vessels are of normal size. There is no evidence of pleural disease. IMPRESSION: Negative chest. Dictated by Lanny Ashley MD @ Nov 07 2020 12:34PM Signed by Dr. Lanny Ashley @ Nov 07 2020 12:46PM
--- NOTE | 2020-11-07 14:14 | PCM.SN.2 ---
- Free Text/Narrative Note: CC: Abdominal pain and distention HPI: 35 year old otherwise healthy female presenting with 2 week history of periumbi lazarus abdominal pain and swelling. Patient denies other symptoms including fevers, chills, night sweats. Workup demonstrates leukocytosis to 11,[address] scan
[2020-11-07] MEDS ORDERED: Midazolam 1 MG/ML 2 ML SDV ONE (15:43)
[2020-11-07] MEDS ORDERED: Propofol 200 MG/20 ML SDV ONE ×3 (15:43→16:41)
[2020-11-07] MEDS ORDERED: fentaNYL 100 MCG/2 ML SDV ONE (15:43)
[2020-11-07] MEDS ORDERED: Lidocaine 2% 5 ML SDV ONE (15:45)
[2020-11-07] MEDS ORDERED: Glycopyrrolate 0.2 MG/ML SDV ONE (15:45)
[2020-11-07] MEDS ORDERED: Bupivacaine 25%/EPINEPHrine/PF 30 ML ONE (15:46)
--- NOTE | 2020-11-07 17:06 | PCM.OPNOTE ---
- General Post-Op/Procedure Note Date of Surgery/Procedure: 11/07/20 Operative Procedure(s): Incision and drainage of abdominal abscess Findings: Large fluid filled cavity in the upper mid abdomen. Pre Op Diagnosis: subcutaneous abdominal abscess Post-Op Diagnosis: subcutaneous abdominal abscess Anesthesia Technique: [facility] [place] Surgeon: Jeff Simon Pathology: fluid from the abscess cavity and cultures. Surgical Drain/Tube Type: [place] Complications: None Condition: Fair
--- NOTE | 2020-11-07 17:08 | CONS ---
DATE OF CONSULTATION: 11/07/2020 DATE OF : 1985 PRIMARY CARE PHYSICIAN: Tom Reyes M.D. HISTORY OF PRESENT ILLNESS: The patient is a pleasant 35-year-old female who says for the past 2 to 3 weeks she has noticed some increased abdominal pain. The pain is more in her mid abdomen. Pain does not really radiate anywhere. Nothing seems to make the pain better other than lying down. Getting up and moving makes it much worse. The patient was seen originally in the clinic, was sent to the ER for evaluation and for CT scan. The patient had a CT scan, which did show a large fluid collection in the subcutaneous space between her umbilicus and her sternum. The patient did have a tummy tuck last year. Several months ago, the patient did have a fluid collection by her umbilicus. The patient says she was given option to get it drained or just antibiotics. She chose just to have antibiotics. The new CT scan looks like this fluid collection has just been expanding. Currently, the fluid collection is 4.7 x 10.3 x 9.4 cm in size. There is a thick peripheral enhancing rim around it and a little bit of fat stranding. Radiology also notes some ground-glass opacity in the lung bases. Her white cell count was slightly elevated at 11.9. The patient denies any fevers or chills. She denies any nausea or vomiting. She denies any COVID symptoms. PAST MEDICAL HISTORY: The patient really denies any. CURRENT HOME MEDICATIONS: The patient denies any. ALLERGIES: No known drug allergies. PAST SURGICAL HISTORY: 1. Tubal ligation. 2. Cholecystectomy. 3. Tummy tuck. FAMILY HISTORY: The patient denies any. SOCIAL HISTORY: 1. Patient smokes half a pack per day. 2. Denies any illicit drug use. REVIEW OF SYSTEMS: Complete 12 plus review of systems was done. It was negative except for what was in HPI. PHYSICAL EXAMINATION: GENERAL: The patient is lying comfortably in her ER bed. She is alert and oriented, in no acute distress. VITAL SIGNS: Temperature is 97.2, pulse is 99, blood pressure is 142/85, and saturating 97% on room air. HEENT: Head is normocephalic, atraumatic. Mouth: She is wearing a mask. LUNGS: Some slight coarse breath sounds bilaterally, a little bit more on the left side. HEART: Regular rate and rhythm. No murmur appreciated. ABDOMEN: Soft and nondistended. She does have a firm mass more in the midline surrounding a little bit of discoloration of the skin right above the umbilicus, likely from pressure from the fluid collection underneath. EXTREMITIES: No edema. NEUROLOGIC: Grossly, no motor or neurologic deficits noted. LABORATORY DATA: White cell count 11.93, hemoglobin 13.4, and platelet count is 420. INR is 1. Lactic acid 0.6. Sodium 139, potassium 3.4, chloride 102, bicarbonate is 24.7, BUN is 6, and creatinine 0.7. Urine test is negative. COVID is positive. IMAGING: As per HPI. ASSESSMENT AND PLAN: This is a pleasant 35-year-old female who had a tummy tuck almost a year ago. However, afterwards, she did develop some type of fluid collection by her umbilicus. This was treated with antibiotics. This fluid collection in the past was 2.2 x 5.3 x 5.8 cm, now appears to have grown to 4.7 x 10.3 x 9.4 cm. I did go over patient that this fluid collection could be an abscess or could be a seroma or a hematoma. I went over her options. I went over the likelihood of the body absorbing fluid collection this size is small. I went over we could do an incision and drainage, sending the fluid off for cultures and start her on antibiotics. I went over that likely I would make an incision and counterincision, and she would go home with a Bradly drain in place to help with drainage. I went over that she might need further surgeries to have this healed down properly. I did go over that she might need to see her plastic surgeon again. The patient understands all the risks, goals, and alternatives to procedure. Risks include but are not limited to bleeding, infection, injury to underlying structures, nonhealing, chronically draining incision, injury to underlying structures that she might need further incision and drainage, and scar formation. The patient understands. I also went over that we could just try needle withdrawal of samples and send it for cultures and do antibiotics. I discussed that a fluid collection of this size would likely not resolve on its own. Her discomfort and pain is most likely secondary to pressure from the size of the fluid collection. The patient understands. She would like to go back to have the incision and drainage. I went over likely she will go home today with the drain in place. The patient understands. All questions were answered. I also went over that we will have [facility] surgical services asst. She understands. All her questions were answered. ANDI SARGENT /[id number] RAH
[2020-11-07 17:42] VITALS: BP 100/74; PULSE 79
--- NOTE | 2020-11-07 17:52 | PCM.POSTAN ---
POST ANESTHESIA ASSESSMENT - MENTAL STATUS Mental Status: Alert - VITAL SIGNS Vital Signs: Last Vital Signs Temp 36.2 C 11/07/20 17:27 Pulse 79 11/07/20 17:41 Resp 14 11/07/20 17:41 BP 100/74 11/07/20 17:41 Pulse Ox 92 L 11/07/20 17:41 - RESPIRATORY Respiratory Status: Respiratory Rate WNL - CARDIOVASCULAR CV Status: Pulse Rate WNL - GASTROINTESTINAL GI Status: No Symptoms - POST OP HYDRATION Hydration Status: Adequate & Stable
--- NOTE | 2020-11-07 17:52 | PCM48HPAN ---
Post Anesthesia Note - EVALUATION WITHIN 48HRS OF ANESTHETIC Vital Signs in Normal Range: Yes Patient Participated in Evaluation: Yes Respiratory Function Stable: Yes Airway Patent: Yes Cardiovascular Function Stable: Yes Hydration Status Stable: Yes Pain Control Satisfactory: Yes Nausea and Vomiting Control Satisfactory: Yes Mental Status Recovered: Yes Vital Signs: Last Vital Signs Temp 36.2 C 11/07/20 17:27 Pulse 79 11/07/20 17:41 Resp 14 11/07/20 17:41 BP 100/74 11/07/20 17:41 Pulse Ox 92 L 11/07/20 17:41
--- NOTE | 2020-11-07 20:33 | PCM.PREANE ---
Preanesthetic Assessment - Anesthesia/Transfusion/Family Hx Anesthesia History: Prior Anesthesia Without Reaction Family History of Anesthesia Reaction: No - Physical Assessment NPO Status Date: 11/07/20 NPO Status Time: 00:05 Vital Signs: Last Vital Signs Temp 36.2 C 11/07/20 17:27 Pulse 79 11/07/20 17:41 Resp 14 11/07/20 17:41 BP 100/74 11/07/20 17:41 Pulse Ox 92 L 11/07/20 17:41 Height: 1.65 m Weight: 91 kg ASA Class: 2E - Lab Values: Laboratory Last Values WBC 11.93 K/uL (4.0-11.0) H 11/07/20 09:20 RBC 5.34 M/uL (4.30-5.90) 11/07/20 09:20 Hgb 13.4 g/dL (12.0-16.0) 11/07/20 09:20 Hct 41.2 % (36.0-46.0) 11/07/20 09:20 MCV 77.2 fL (80.0-98.0) L 11/07/20 09:20 MCH 25.1 pg (27.0-32.0) L 11/07/20 09:20 MCHC 32.5 g/dL (31.0-37.0) 11/07/20 09:20 RDW Std Deviation 46.3 fl (28.0-62.0) 11/07/20 09:20 RDW Coeff of Lucio 16 % (11.0-15.0) H 11/07/20 09:20 Plt Count 420 K/uL (150-400) H 11/07/20 09:20 MPV 9.70 fL (7.40-12.00) 11/07/20 09:20 Neut % (Auto) 62.4 % (48.0-80.0) 11/07/20 09:20 Lymph % (Auto) 27.2 % (16.0-40.0) 11/07/20 09:20 [place] % (Auto) 9.8 % (0.0-15.0) 11/07/20 09:20 Eos % (Auto) 0.2 % (0.0-7.0) 11/07/20 09:20 Baso % (Auto) 0.4 % (0.0-1.5) 11/07/20 09:20 Neut # (Auto) 7.4 K/uL (1.4-5.7) H 11/07/20 09:20 Lymph # (Auto) 3.3 K/uL (0.6-2.4) H 11/07/20 09:20 [place] # (Auto) 1.2 K/uL (0.0-0.8) H 11/07/20 09:20 Eos # (Auto) 0.0 K/uL (0.0-0.7) 11/07/20 09:20 Baso # (Auto) 0.1 K/uL (0.0-0.1) 11/07/20 09:20 Nucleated RBC % 0.0 /100WBC 11/07/20 09:20 Nucleated RBCs # 0 K/uL 11/07/20 09:20 INR 1.03 11/07/20 09:20 Lactate 0.6 mmol/L (0.20-2.00) 11/07/20 09:20 Sodium 139 mmol/L (136-145) 11/07/20 09:20 Potassium 3.4 mmol/L (3.5-5.1) L 11/07/20 09:20 Chloride 102 mmol/L (98-107) 11/07/20 09:20 Carbon Dioxide 24.7 mmol/L (21.0-32.0) 11/07/20 09:20 BUN 6 mg/dL (7.0-18.0) L 11/07/20 09:20 Creatinine 0.7 mg/dL (0.6-1.0) 11/07/20 09:20 Est Cr Clr Drug Dosing 102.86 mL/min 11/07/20 09:20 Estimated GFR (MDRD) > 60.0 ml/min 11/07/20 09:20 Glucose 94 mg/dL (74-106) 11/07/20 09:20 Calcium 8.3 mg/dL (8.5-10.1) L 11/07/20 09:20 Total Bilirubin 0.2 mg/dL (0.2-1.0) 11/07/20 09:20 AST 21 IU/L (15-37) 11/07/20 09:20 ALT 43 IU/L (14-63) 11/07/20 09:20 Alkaline Phosphatase 65 U/L (46-116) 11/07/20 09:20 Total Protein 8.4 g/dL (6.4-8.2) H 11/07/20 09:20 Albumin 3.4 g/dL (3.4-5.0) 11/07/20 09:20 Globulin 5.0 g/dL (2.6-4.0) H 11/07/20 09:20 Albumin/Globulin Ratio 0.7 (0.9-1.6) L 11/07/20 09:20 Lipase 66 U/L (73-393) L 11/07/20 09:20 Urine Color YELLOW 11/07/20 09:53 Urine Appearance CLEAR 11/07/20 09:53 Urine pH 6.0 (5.0-8.0) 11/07/20 09:53 Ur Specific [place] 1.010 (1.001-1.035) 11/07/20 09:53 Urine Protein NEGATIVE mg/dL (NEGATIVE) 11/07/20 09:53 Urine Glucose (UA) NEGATIVE mg/dL (NEGATIVE) 11/07/20 09:53 Urine Ketones NEGATIVE mg/dL (NEGATIVE) 11/07/20 09:53 Urine Occult Blood NEGATIVE (NEGATIVE) 11/07/20 09:53 Urine Nitrite NEGATIVE (NEGATIVE) 11/07/20 09:53 Urine Bilirubin NEGATIVE (NEGATIVE) 11/07/20 09:53 Urine Urobilinogen 0.2 EU/dL (<2.0) 11/07/20 09:53 Ur Leukocyte Esterase NEGATIVE (NEGATIVE) 11/07/20 09:53 Urine HCG, Qual NEGATIVE (NEGATIVE) 11/07/20 09:53 SARS-CoV-2 RNA (DARLEEN) POSITIVE (NEGATIVE) H 11/07/20 12:45 - Allergies Allergies/Adverse Reactions: Allergies Allergy/AdvReac Type Severity Reaction Status Date / Time No Known Allergies Allergy Verified 11/07/20 09:36 - Acknowledgements Anesthesia Type Planned: MAC Pt an Appropriate Candidate for the Planned Anesthesia: Yes Alternatives and Risks of Anesthesia Discussed w Pt/Guardian: Yes Pt/Guardian Understands and Agrees with Anesthesia Plan: Yes PreAnesthesia Questionnaire - Past Health History Medical/Surgical History: Denies Medical/Surgical History HEENT History: Reports: None Gastrointestinal History: Reports: None Genitourinary History: Reports: None Psychiatric History: Reports: None Endocrine/Metabolic History: Reports: Obesity/BMI 30+ - Infectious Disease History Infectious Disease History: Reports: Chicken Pox Other Infectious Disease History: childhood - Past Surgical History Head Surgeries/Procedures: Reports: None HEENT Surgical History: Reports: Oral Surgery GI Surgical History: Reports: Cholecystectomy Female Surgical History: Reports: Tubal Ligation Dermatological Surgical History: Reports: Plastic Surgical Reconstruction/Repair - SUBSTANCE USE Tobacco Use Status *Q: Current Every Day Tobacco User Recreational Drug Use History: No - HOME MEDS Home Medications: Home Meds Acetaminophen/HYDROcodone [Thayer 325-5 MG] 1 tab PO Q6H PRN #5 tablet 11/07/20 [Rx] Sulfamethoxazole/Trimethoprim [Bactrim Ds Tablet] 1 each PO BID #28 tablet 11/07/20 [Rx] - CURRENT (IN HOUSE) MEDS Current Meds: Current Medications Discontinued Medications Fentanyl (Sublimaze) Confirm Administered Dose 100 mcg .ROUTE .STK-MED ONE Stop: 11/07/20 15:44 Glycopyrrolate (Robinul) Confirm Administered Dose 0.2 mg .ROUTE .STK-MED ONE Stop: 11/07/20 15:46 Lactated Ringer's (Ringers, Lactated) 1,000 mls @ 999 mls/hr IV .BOLUS ONE Stop: 11/07/20 10:12 Last Admin: 11/07/20 09:35 Dose: 999 mls/hr Documented by: Piperacillin Sod/Tazobactam (Sod 4.5 gm/ Sodium Chloride) 100 mls @ 100 mls/hr IV ONETIME ONE Stop: 11/07/20 13:24 Last Admin: 11/07/20 12:57 Dose: 100 mls/hr Documented by: Vancomycin HCl 1.5 gm/ Premix 300 mls @ 200 mls/hr IV Q8H CHANDLER Last Admin: 11/07/20 14:00 Dose: 200 mls/hr Documented by: Bupivacaine HCl/Epinephrine Bitart (Sensorc Mpf 0.25%-Epi [id number]) Confirm Administered Dose 30 mls @ as directed .ROUTE .STK-MED ONE Stop: 11/07/20 15:47 Iopamidol (Isovue Multipack-370 (76%)) 100 ml IVPUSH ONETIME ONE Stop: 11/07/20 11:08 Last Admin: 11/07/20 11:08 Dose: 100 ml Documented by: Lidocaine (Xylocaine-Mpf 2%) Confirm Administered Dose 5 ml .ROUTE .STK-MED ONE Stop: 11/07/20 15:46 Midazolam HCl (Versed 1 Mg/Ml) Confirm Administered Dose 4 mg .ROUTE .STK-MED ONE Stop: 11/07/20 15:44 Morphine Sulfate (Morphine) 4 mg IVPUSH ONETIME ONE Stop: 11/07/20 09:13 Last Admin: 11/07/20 09:35 Dose: 4 mg Documented by: Ondansetron HCl (Zofran) 4 mg IVPUSH ONETIME ONE Stop: 11/07/20 09:13 Last Admin: 11/07/20 09:35 Dose: 4 mg Documented by: Propofol (Diprivan 20 Ml) Confirm Administered Dose 600 mg .ROUTE .STK-MED ONE Stop: 11/07/20 15:44 Propofol (Diprivan 20 Ml) Confirm Administered Dose 200 mg .ROUTE .STK-MED ONE Stop: 11/07/20 15:46 Propofol (Diprivan 20 Ml) Confirm Administered Dose 200 mg .ROUTE .STK-MED ONE Stop: 11/07/20 16:42 Sodium Chloride (Saline Flush) 10 ml FLUSH ASDIRECTED PRN PRN Reason: Keep Vein Open Last Admin: 11/07/20 09:37 Dose: 10 ml Documented by: Sodium Chloride (Saline Flush) 2.5 ml FLUSH ASDIRECTED PRN PRN Reason: Keep Vein Open Last Admin: 11/07/20 10:26 Dose: 2.5 ml Documented by: Vancomycin HCl (Pharmacy To Dose - Vancomycin) 1 dose .XX ONETIME ONE Stop: 11/07/20 12:26 Last Admin: 11/07/20 12:58 Dose: Not Given Documented by:
--- NOTE | 2020-11-07 21:05 | OR ---
SURGEON: KAVITA JONES MD DATE OF PROCEDURE: 11/07/2020 PREOPERATIVE DIAGNOSIS: Subcutaneous abdominal abscess. POSTOPERATIVE DIAGNOSIS: Subcutaneous abdominal abscess/infected seroma PROCEDURE PERFORMED: Incision and drainage of abdominal abscess/ infected seroma. SPECIMEN: Cultures. ESTIMATED BLOOD LOSS: 5 mL. PRIMARY SURGEON: Kavita Jones MD RECOVERY ASSISTANT: Adan Miranda, [employer] surgical instrument mechanic. ANESTHESIA: Conscious sedation. REASON FOR PROCEDURE: The patient is a pleasant 35-year-old female who says for the past 2 or 3 weeks she has had increasing abdominal pain and mass. She was seen and found to have a large subcutaneous fluid collection/abscess that was 4.7 x 10.3 x 9.4 cm. I did go over with the patient risks, goals, and alternatives to incision and drainage of the abscess. These include, but are not limited to, bleeding, infection, recurrence, need for more surgery, scar formation, and return of the fluid collection. I did go over with the patient that we would most likely make two incisions and use a [place] drain rather than leaving a larger wound open with packing. The patient understands. All the patient's questions were answered. PROCEDURE IN DETAIL: The patient was brought back to the OR. She was prepped and draped in the usual sterile fashion. Conscious sedation was provided by the Anesthesia team. She did receive preoperative antibiotics. After time-out was performed, an area of where it felt to be maximally fluctuant was injected with local. Now, a 15- gauge needle was placed. We withdraw about 50 mL of dark, murky fluid, that appeared to be more consistent with an infected seroma. This was sent for culture. Now, an incision was made at this site and carried down to the cavity. The fluid collection was entered and again copious amount of this darker murky fluid came out. The opening was large enough for my finger, did sweep the cavity. There did not seem to be any loculations and it seemed to be completely evacuated. Now, another smaller incision was made above our first incision. The cavity was then irrigated. Now, a [place] drain was placed between the two openings and secured in place with nylon stitch. There appeared to be good hemostasis. Now, attention was brought to a lower suprapubic draining abscess from the right incision line of her previous abdominoplasty. There was some purulent material coming out of this. It was gently probed and did not appear to track far. I did not open it up further since there did not appear to be any deeper underlying fluid collection and it was already spontaneously draining. Fluffs were placed without the KIARRA drain. Sponge and needle counts were correct at the end of the case. The patient was transferred to recovery room in stable condition. ANDI / ROSETTA /[id number] MTDD
== END 2020-11-07 17:54 | disposition home or self-care (01) ==
LOC: MW.ED 09:07 → MW.SDS 15:22
PROVIDERS: ATTEND Surgery
DX: L02.211 Cutaneous abscess of abdominal wall (principal); U07.1 COVID-19; D72.829 Elevated white blood cell count, unspecified; F17.210 Nicotine dependence, cigarettes, uncomplicated; E66.9 Obesity, unspecified; Z68.33 Body mass index [BMI] 33.0-33.9, adult; E10.9 Type 1 diabetes mellitus without complications; R16.0 Hepatomegaly, not elsewhere classified; R91.8 Other nonspecific abnormal finding of lung field; Z98.890 Other specified postprocedural states
CPT/HCPCS: 10061; 36415; 71045; 74177; 80053; 81003; 81025; 83605; 83690; 85025; 85610; 87040; 87070; 87075; 87077; 87186; 87205; 87635; 96365; 96367; 96375; 99285; J2250; J2270; J2405; J2543; J2704; J3010; J3370; J3490; J7120; Q9967; 99291; U0002

== ENCOUNTER 2021-10-05 18:45 | Emergency (ER) | payer OTHER ==
[2021-10-05 20:01] LABS: BLOOD UREA NITROGEN,BUN 8 mg/dL (7.0-18.0); CARBON DIOXIDE,CO2 24.8 mmol/L (21.0-32.0); CHLORIDE,CL 103 mmol/L (98-107); GLUCOSE RANDOM 88 mg/dL (74-106); LIPASE 45 U/L (73-393); POTASSIUM,K 3.6 mmol/L (3.5-5.1); SODIUM,NA 139 mmol/L (136-145)
[2021-10-05] MEDS ORDERED: Iopamidol 755 MG/ML 500 ML Multipack Bottle IVPUSH ONE (20:12)
[2021-10-05 21:14] VITALS: BP 128/77; PULSE 84
== END 2021-10-05 21:14 | disposition home or self-care (01) ==
LOC: MW.ED 18:45
DX: L03.311 Cellulitis of abdominal wall (principal); E66.9 Obesity, unspecified; Z68.33 Body mass index [BMI] 33.0-33.9, adult
CPT/HCPCS: 36415; 74177; 80053; 81003; 81025; 83690; 85025; 99284; Q9967